=== PATIENT | female | born 1940 | race Caucasian/White ===

== ENCOUNTER 2025-10-31 23:19 | Emergency (ER) | payer MEDICARE, MEDICAID ==
[2025-10-31 23:37] LABS: BASOPHILS ABSOLUTE AUTO 0.02 K/uL (0.00-0.20); BASOPHILS PERCENT AUTO 0.2 % (0.0-2.0); EOSINOPHILS ABSOLUTE AUTO 0.09 K/uL (0.00-0.50); EOSINOPHILS PERCENT AUTO 0.9 % (0.0-5.0); IMMATURE GRAN ABSOLUTE AUTO 0.04 10^3/uL (0.00-0.04); IMMATURE GRAN PERCENT AUTO 0.4 % (0.0-0.4); LYMPHOCYTES ABSOLUTE AUTO 2.07 K/uL (0.50-3.50); LYMPHOCYTES PERCENT AUTO 21.0 % (10.0-50.0); MONOCYTES ABSOLUTE AUTO 1.06 K/uL (0.00-1.00); MONOCYTES PERCENT AUTO 10.7 % (2.0-14.0); NEUTROPHILS ABSOLUTE AUTO 6.60 K/uL (1.40-7.00); NEUTROPHILS PERCENT AUTO 66.8 % (45.0-80.0); PLATELET COUNT,PLT 183 K/uL (150-350); RED BLOOD CELL COUNT 5.00 M/uL (3.77-5.09); RED CELL DISTRIBUTION WIDTH 12.1 % (11.2-14.1); WHITE BLOOD CELL COUNT,WBC 9.9 K/uL (4.0-10.2)
[2025-10-31 23:52] LABS: INR 1.2 (0.9-1.1); PTT,PARTIAL THROMBOPLSTIN TIME 25.7 SEC (23.8-34.4)
[2025-10-31] MEDS: Sodium Chloride 0.9% 10 ML Syringe FLUSH PRN (23:56)
[2025-10-31 23:57] LABS: LACTIC ACID 1.5 mmol/L (0.4-2.0)
[2025-11-01 00:03] LABS: ALANINE AMINOTRANSFERASE,ALT 26 U/L (12-78); ASPARTATE AMNIOTRANSFERASE,AST 41 U/L (15-37); BILIRUBIN TOTAL 0.8 mg/dL (0.2-1.0); BLOOD UREA NITROGEN,BUN 15 mg/dL (7-18); CARBON DIOXIDE,CO2 27.6 mmol/L (21.0-32.0); CHLORIDE,CL 101 mmol/L (98-107); CREATININE 1.10 mg/dL (0.51-1.17); ETHANOL BLOOD MEDICAL 0.002 g/dL (0.000-0.080); GLUCOSE RANDOM 151 mg/dL (70-99); POTASSIUM,K 3.2 mmol/L (3.5-5.1); PROTEIN TOTAL,TP 7.7 g/dL (6.4-8.2); SODIUM,NA 140 mmol/L (136-145); TSH ULTRASENSITIVE 4.465 mIU/mL (0.358-3.740)
[2025-11-01 00:04] LABS: ESTIMATED GFR 50 mL/min (>=60)
[2025-11-01] MEDS: Iopamidol 755 Mg/ML 100 ML Bottle IVPUSH STA (01:14)
== END 2025-11-01 00:45 ==
LOC: LL.ED 23:19
DX: I63.442 Cerebral infarction due to embolism of left cerebellar artery (principal); Z88.8 Allergy status to other drugs, medicaments and biological substances
CPT/HCPCS: 36415; 70450; 70496; 70498; 80053; 80307; 83605; 83735; 84443; 84484; 85025; 85610; 85730; 86140; 93010; 96374; 99284; 99285-25; J1920; Q9967